=== PATIENT | female | born 1945 | race Caucasian/White ===

== ENCOUNTER 2020-10-23 20:37 | Emergency (ER) | payer MEDICARE ==
--- NOTE | 2020-10-23 21:03 | ERPHSYRPT ---
- History of Present Illness Time Seen by Provider: 10/23/20 20:55 Historian: patient, family Exam Limitations: no limitations Physician History: The patient is a 74-year-old female with a past medical significant for back pain for which she will take tramadol intermittently presents with a chief complaint of abdominal pain. Onset reportedly was about a month ago. Was pulling up some [place] plants when the pain began. The pain is been constant and daily and reportedly getting worse. She describes her pain as right upper quadrant pain and epigastric pain that radiates to her left upper quadrant. The pain is associated with nausea whenever she eats. She denies vomiting, constipation, diarrhea, fever, chills, weight gain or weight loss or fevers. She denies chest pain or shortness of breath. He has been taken to tramadol every now and then when the pain gets bad but she is not experience any relief. She was offered pain medications at the end of her interview but declined. The pain is described as a dull ache. Activities at Onset: activity Quality: aching, dullness Abdominal Pain Onset Location: RUQ, LUQ, epigastric Pain Radiation: other (Upper abdomen) Allergies/Adverse Reactions: No Known Drug Allergies Allergy (Unverified 10/23/20 20:59) Home Medications: Amlodipine Besylate 5 mg [Norvasc 5 mg] 5 mg PO DAILY 02/20/12 [History] Aspirin EC 81 mg [Ecotrin 81 mg] 81 mg PO DAILY 02/20/12 [History] Calcium Carbonate [Calcium] 600 mg PO BID 02/20/12 [History] Raloxifene HCl 60 mg [Evista 60 MG] 60 mg PO DAILY 02/20/12 [History] Atorvastatin Calcium 20 mg PO HS 10/23/20 [History] Hydrochlorothiazide 25 mg [hydroDIURIL 25 MG] 25 mg PO DAILY 10/23/20 [History] Lisinopril 40 mg PO DAILY 10/23/20 [History] Magnesium Oxide 500 mg PO HS 10/23/20 [History] Metoprolol Tartrate 50 mg [Lopressor 50 MG] 50 mg PO BID 10/23/20 [History] Tramadol HCl 50 mg [Ultram 50 mg] 50 mg PO Q8H PRN PRN 10/23/20 [History] Hx Tetanus, Diphtheria Vaccination/Date Given: No Hx Influenza Vaccination/Date Given: No Hx Pneumococcal Vaccination/Date Given: No - Review of Systems Constitutional: No Fever, No Chills Ears, Nose, & Throat: No Symptoms Respiratory: No Cough, No Dyspnea Cardiac: Other, No Chest Pain Abdominal/Gastrointestinal: Nausea, No Vomiting, No Diarrhea, No Hematemesis, No Melena Genitourinary Symptoms: No Dysuria, No Frequency, No Hematuria Musculoskeletal: No Symptoms Skin: No Symptoms Neurological: No Symptoms Psychological: No Symptoms Endocrine: No Symptoms Hematologic/Lymphatic: No Symptoms Immunological/Allergic: No Symptoms All Other Systems: Reviewed and Negative - Past Medical History Pertinent Past Medical History: Yes Neurological History: No Pertinent History ENT History: No Pertinent History, Other Cardiac History: High Cholesterol, Hypertension Respiratory History: No Pertinent History Endocrine Medical History: No Pertinent History Musculoskeletal History: No Pertinent History GI Medical History: Polyps History: No Pertinent History Psycho-Social History: No Pertinent History Female Reproductive Disorders: No Pertinent History - Past Surgical History Past Surgical History: Yes Neuro Surgical History: No Pertinent History Cardiac: No Pertinent History Respiratory: No Pertinent History Gastrointestinal: No Pertinent History Genitourinary: No Pertinent History Musculoskeletal: Orthopedic Surgery Female Surgical History: Hysterectomy Other Surgical History: Left Femur FX--Jorge Placement. HX Neck Surgery - Social History Smoking Status: Never smoker Exposure to second hand smoke: No Drug Use: none Patient Lives Alone: Yes - Nursing Vital Signs Nursing Vital Signs: Initial Vital Signs Temperature 98.0 F 10/23/20 20:38 Pulse Rate 74 10/23/20 20:38 Respiratory Rate 20 10/23/20 20:38 Blood Pressure 127/62 10/23/20 20:38 O2 Sat by Pulse Oximetry 99 10/23/20 20:38 Pain Scale Pain Intensity [] 7 Pain Intensity [] 7 Pain Intensity 2 - Physical Exam General Appearance: no apparent distress Eye Exam: PERRL/EOMI, No scleral icterus Ears, Nose, Throat Exam: normal ENT inspection, moist mucous membranes Neck Exam: normal inspection Respiratory Exam: normal breath sounds, lungs clear, No chest tenderness, No respiratory distress, No diminished breath sounds Cardiovascular Exam: regular rate/rhythm, normal heart sounds, normal peripheral pulses, capillary refill <2 sec, No murmur, No friction rub, No gallop, No edema, No pulse deficit Gastrointestinal/Abdomen Exam: soft, tenderness, other (Mild LUQ, epigastric, and RUQ tenderness), No distention, No mass, No guarding, No splenomegaly Back Exam: normal inspection Extremity Exam: normal inspection, No swelling, No tenderness Neurologic Exam: alert, oriented x 3, cooperative Skin Exam: normal color, warm, dry, No rash, No petechiae, No jaundice SpO2 Interpretation: normal O2 Delivery: Room Air - Course Nursing assessment & vital signs reviewed: Yes EKG Interpreted by Me: RATE, Sinus Rhythm, NORMAL AXIS, NORMAL INTERVALS, Other (PVC. Negative for STEMI. 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 Gastric thickening, irregularity in appearance of large posterior gastric ulcer. Recommended endoscopy for further evaluation. Previous hysterectomy.) Ordered Tests: Active Orders 24 hr Category Date Time Status EKG-ER Only STAT Care 10/23/20 20:57 Completed IV Insertion STAT Care 10/23/20 20:57 Completed ABDOMEN AND PELVIS W CONTRAST [CT] Stat Exams 10/23/20 21:46 Taken BMP Stat Lab 10/23/20 21:12 Completed CBC W DIFF Stat Lab 10/23/20 21:12 Completed Hepatic Function Panel Stat Lab 10/23/20 21:12 Completed LIPASE Stat Lab 10/23/20 21:12 Completed TROPONIN Stat Lab 10/23/20 21:12 Completed UA W/RFX UR CULTURE Stat Lab 10/23/20 21:42 Completed Medication Summary Discontinued Medications Generic Name Dose Route Start Last Admin Trade Name Sara PRN Reason Stop Dose Admin Sodium Chloride 1,000 mls @ 999 mls/hr 10/23/20 21:57 10/23/20 22:04 Sodium Chloride 0.9% 1000 Ml IV 10/23/20 22:57 999 mls/hr .Q1H1M STA Administration Sodium Chloride Confirm 10/23/20 21:58 Sodium Chloride 0.9% 1000 Ml Administered 10/23/20 21:59 Dose 1,000 mls @ ud .ROUTE .STK-MED ONE Pantoprazole Sodium 40 mg 10/23/20 22:18 10/23/20 22:39 Protonix 40 Mg Iv IV 10/23/20 22:19 40 mg STAT ONE Administration Pantoprazole Sodium Confirm 10/23/20 22:38 Protonix 40 Mg Iv Administered 10/23/20 22:39 Dose 40 mg IV .STK-MED ONE Lab/Rad Data: Laboratory Result Diagrams 10/23/20 21:12 10/23/20 21:12 Laboratory Results 10/23/20 10/23/20 10/23/20 Range/Units 21:42 21:12 21:12 WBC 11.3 H (4.0-10.5) K/mm3 RBC 4.22 (4.1-5.4) M/mm3 Hgb 12.6 (12.0-16.0) gm/dl Hct 38.6 (35-47) % MCV 91.5 (78-100) fl MCH 29.9 (26-32) pg MCHC 32.6 (32-36) g/dl RDW 12.5 (11.5-14.0) % Plt Count 372 (150-450) K/mm3 MPV 9.5 (7.5-11.0) fl Gran % 71.7 H (36.0-66.0) % Eos # (Auto) 0.08 (0-0.5) Absolute Lymphs (auto) 2.13 (1.0-4.6) Absolute Monos (auto) 0.95 (0.0-1.3) Lymphocytes % 18.9 L (24.0-44.0) % Monocytes % 8.4 (0.0-12.0) % Eosinophils % 0.7 (0.00-5.0) % Basophils % 0.3 (0.0-0.4) % Absolute Granulocytes 8.07 H (1.4-6.9) Basophils # 0.03 (0-0.4) Sodium 135 L (137-145) mmol/L Potassium 3.2 L (3.5-5.1) mmol/L Chloride 96 L (98-107) mmol/L Carbon Dioxide 28 (22-30) mmol/L Anion Gap 14.6 (5-15) MEQ/L BUN 18 H (7-17) mg/dL Creatinine 1.15 H (0.52-1.04) mg/dL Estimated GFR 49.3 ML/MIN Glucose 129 H (74-106) mg/dL Calcium 10.9 H (8.4-10.2) mg/dL Total Bilirubin 0.40 (0.2-1.3) mg/dL Direct Bilirubin 0 (0.0-0.4) mg/dL AST 44 H (14-36) U/L ALT 14 (0-35) U/L Alkaline Phosphatase 83 (38-126) U/L Troponin I < 0.012 (0.000-0.034) ng/mL Serum Total Protein 6.6 (6.3-8.2) g/dL Albumin 4.0 (3.5-5.0) g/dL Lipase 85 (23-300) U/L Urine Color STRAW (YELLOW) Urine Appearance CLEAR (CLEAR) Urine pH 7.0 (5-6) Ur Specific [place] 1.014 (1.005-1.025) Urine Protein NEGATIVE (Negative) Urine Ketones TRACE (NEGATIVE) Urine Blood NEGATIVE (0-5) Milo/ul Urine Nitrite NEGATIVE (NEGATIVE) Urine Bilirubin NEGATIVE (NEGATIVE) Urine Urobilinogen NEGATIVE (0-1) mg/dL Ur Leukocyte Esterase NEGATIVE (NEGATIVE) Urine WBC (Auto) 0-2 (0-5) /HPF Urine RBC (Auto) NONE (0-2) /HPF U Hyaline Cast (Auto) 3-5 (0-2) /LPF U Epithel Cells (Auto) NONE (FEW) /HPF Urine Bacteria (Auto) NONE SEEN (NEGATIVE) /HPF Urine Culture Reflexed NO (NO) Urine Glucose NEGATIVE (NEGATIVE) mg/dL - Progress Progress Note: 10/23/20 21:10 Nontoxic in appearance. The patient presents with left upper quadrant abdominal pain that radiates to her epigastrium and right upper quadrant. The pain is been present for a month. I do not feel any pulsating mass and the patient had some mild tenderness to the epigastrium but otherwise with no rebound tenderness or guarding no no overt signs tinnitus. Overall, she is well-appearing. I anushka l start with general labs to include CBC, BMP, lipase and LFTs in addition to a troponin and EKG. I have a low suspicion for ACS equivalent in addition to PE and this does not seem to be pulmonary in nature either. You for evidence UTI or hematuria., The patient denies symptoms of a UTI. 10/23/20 21:50 The patient is okay with getting a contrasted study of her abdomen and pelvis after risk benefits discussed. 10/23/20 21:51 CT abdomen pelvis with contrast study to eval for pancreatic mass, splenic infarct, AAA, gallbladder disease, or mesenteric thrombosis or stenosis. Also eval for duodenitis, PUD, small bowel obstruction or large bowel obstruction. 10/23/20 23:45 That I am currently waiting on the radiology to read her CT scans. She was sitting upright and appeared to be in no obvious distress. She was thankful for care. 10/24/20 00:41 Proved after receiving Protonix. I updated her with her CT scan report results and her laboratory results. I instructed her to drink a glass of V8 juice daily to help resolve her hypokalemia and to start taking Protonix daily given her she has evidence of a gastric ulcer. I instructed her to follow-up with Dr. Romero and that we would try to contact him in the morning to have her scheduled for an EGD for further evaluation. She informing that she does have a GI that is performed a colonoscopy on her month ago and she would try to get a hold of Dr. Garcia that GI that she was referring to as well. And need to follow-up with her primary care provider for additional outpatient testing. She was instructed to return to the emergency department if she were to develop any hematemesis, melena or bloody stools or worsening abdominal pain. She agreed with and verbally understood the discharge plan. She and her daughter were comfortable with the patient being discharged home and the daughter understood the discharge plan as well Counseled pt/family regarding: lab results, diagnosis, rad results - Departure Departure Disposition: Home Clinical Impression: Hiatal hernia, CKD (chronic kidney disease), Hypokalemia, Gastric ulcer Condition: Stable Critical Care Time: No Referrals: BEL VILLALOBOS [Primary Care Provider] - DANNY ROMERO [ACTIVE STAFF] - Instructions: Upper GI Endoscopy, Gastric Ulcer (DC) Additional Instructions: Please avoid ibuprofen, Aleve, naproxen or any medications classified as a NSAI D. Please avoid fatty greasy or please avoid aspirin. Call his office first thing in the morning to schedule an appointment to be seen for possible EGD/endoscopy for further evaluation of your gastric ulcer and hiatal hernia. Worsens, if you start to vomit blood, or if you notice that your stools are turning black or if you are starting to have bloody bowel movements. Prescriptions: PANTOPRAZOLE 40 mg Tablet [Protonix 40MG Tablet] 40 mg PO QAM 30 Days #30 tab
[2020-10-23 21:18] LABS: Absolute Neutrophil Ct (ANC) 8.07 (1.4-6.9); BASOPHIL % 0.3 % (0.0-0.4); Basophil (Absolute #) 0.03 (0-0.4); Eosinophil % 0.7 % (0.00-5.0); Eosinophil (Absolute #) 0.08 (0-0.5); Hematocrit 38.6 % (35-47); Hemoglobin 12.6 gm/dl (12.0-16.0); Lymphocyte (Absolute #) 2.13 (1.0-4.6); Lymphocytes % 18.9 % (24.0-44.0); Mean Cell Volume 91.5 fl (78-100); Mean Corpuscular Hemoglobin 29.9 pg (26-32); Mean Corpuscular Hgb Concent. 32.6 g/dl (32-36); Mean Platelet Volume 9.5 fl (7.5-11.0); Monocyte (Absolute #) 0.95 (0.0-1.3); Monocytes % 8.4 % (0.0-12.0); Neutrophil % 71.7 % (36.0-66.0); Platelet Count 372 K/mm3 (150-450); Red Blood Count 4.22 M/mm3 (4.1-5.4); Red Cell Distribution Width 12.5 % (11.5-14.0); White Blood Count 11.3 K/mm3 (4.0-10.5)
[2020-10-23 21:42] LABS: ALKALINE PHOSPHATASE 83 U/L (38-126); ANION GAP 14.6 MEQ/L (5-15); BLOOD UREA NITROGEN 18 mg/dL (7-17); CHLORIDE 96 mmol/L (98-107); Calcium 10.9 mg/dL (8.4-10.2); Carbon Dioxide 28 mmol/L (22-30); Creatinine 1 1.15 mg/dL (0.52-1.04); EST GLOMERULAR FILTRATION RATE 49.3 ML/MIN; Glucose 129 mg/dL (74-106); LIPASE 85 U/L (23-300); Potassium 3.2 mmol/L (3.5-5.1); SGOT/AST 44 U/L (14-36); SGPT/ALT 14 U/L (0-35); SODIUM 135 mmol/L (137-145); TROPONIN < 0.012 ng/mL (0.000-0.034); Total Protein 6.6 g/dL (6.3-8.2)
[2020-10-23 21:43] LABS: Direct Bilirubin 0 mg/dL (0.0-0.4)
[2020-10-23] MEDS ORDERED: Sodium Chloride 0.9% 1000 ML 1,000 ML IV STA (21:57)
[2020-10-23] MEDS ORDERED: Sodium Chloride 0.9% 1000 ML 1,000 ML ONE (21:58)
[2020-10-23] MEDS ORDERED: PROTONIX 40 MG IV IV ONE ×2 (22:18→22:38)
[2020-10-23 23:41] LABS: Appearance CLEAR (CLEAR); Bacteria NONE SEEN /HPF (NEGATIVE); Bilirubin NEGATIVE (NEGATIVE); Blood NEGATIVE Ery/ul (0-5); Glucose NEGATIVE (NEGATIVE); Ketones TRACE (NEGATIVE); Leukocyte Esterase NEGATIVE (NEGATIVE); Nitrite NEGATIVE (NEGATIVE); Protein,Urine Dip NEGATIVE (Negative); Specific Gravity 1.014 (1.005-1.025); Urobilinogen NEGATIVE mg/dL (0-1); WBC 0-2 /HPF (0-5)
[2020-10-24 00:35] VITALS: O2SAT 98
[2020-10-24 00:55] VITALS: BP 130/60; PULSE 90
--- NOTE | 2020-10-24 09:01 | XRAY ---
Indication: Abdomen pain 1 month. Elevated WBC. Multiple contiguous axial images obtained through the abdomen and pelvis using 80 cc Isovue 370 contrast. Comparison: None Lung bases demonstrates bilateral dependent atelectasis. There is a 6 mm indeterminant noncalcified nodule in the posterior left lower lobe. Tiny right lower lobe calcified granuloma. No infiltrate or effusion. Heart is enlarged. Small hiatal hernia. Noncontrasted stomach demonstrates mild wall thickening. Lesser curvature demonstrates 2 cm focal outpouching, diverticulum versus gastric ulcer. No free fluid/air. Bowel loops appear nonobstructed. Normal appendix. Radiopacity throughout the colon either ingested bismuth versus barium. There has been hysterectomy. 1.2 cm left lobe hepatic cyst. Remaining liver, gallbladder, pancreas, spleen, adrenal glands, kidneys, ureters, and bladder are unremarkable. Mild scattered aortic calcifications. No AAA or pathologic retroperitoneal lymphadenopathy. Osseous structures intact. Incidental old proximal left femur fracture with incompletely visualized orthopedic hardware. No ventral or inguinal hernias. Impression: 1. Gastric wall thickening with lesser curvature outpouching. Rule out gastric diverticulum versus gastric ulcer. 2. Incidental small hiatal hernia and small hepatic cyst. 3. Left lower lobe indeterminate noncalcified micronodule. Finding possibly granulomatous as there is tiny right lower lobe calcified granuloma. Outside comparison studies recommended if available. Comment: Preliminary interpretation was made by [facility]. No critical discrepancy.
== END 2020-10-24 00:55 | disposition home or self-care (01) ==
LOC: ED 20:37
DX: K44.9 Diaphragmatic hernia without obstruction or gangrene (principal); R10.12 Left upper quadrant pain; R10.11 Right upper quadrant pain; K25.9 Gastric ulcer, unspecified as acute or chronic, without hemorrhage or perforation; R10.13 Epigastric pain; E87.6 Hypokalemia; I12.9 Hypertensive chronic kidney disease with stage 1 through stage 4 chronic kidney disease, or unspecified chronic kidney disease; N18.9 Chronic kidney disease, unspecified; Z79.899 Other long term (current) drug therapy; R11.0 Nausea
CPT/HCPCS: 36000; 36415; 74177; 80048; 80076; 81001; 83690; 84484; 85025; 93005; 96360; 96374; 99284